=== PATIENT | female | born 1985 | race Caucasian/White ===

== ENCOUNTER 2016-04-27 09:33 | Day surgery (SDC) | payer OTHER ==
[~2016-04-27] VITALS: Ht 158.8 cm; Wt 88.4 kg
[~2016-04-27 09:33] MED LIST: MAKENA250 MG/11 IM; NAPROSYN500 MG PO; PRENATAL TABLE1 EAC3 PO
[2016-04-27 10:15] LABS: MCH 29.1 PG (29.0-34.0); MCHC 33.3 G/DL (30.0-36.0); MCV 87.2 FL (83-99); MEAN PLAT.VOLUME 10.9 uM^3 (9.5-12.4); PLATELET COUNT 368 K/uL (156-360); RBC DIS.WIDTH-CV 13.4 % (11.8-14.6); RBC DIS.WIDTH-SD 41.6 % (39-53); RED BLOOD COUNT 4.47 M/uL (3.80-5.20)
[2016-04-27 10:30] LABS: CHLORIDE 108 mEq/L (99-109); POTASSIUM 4.5 mEq/L (3.7-5.4); SODIUM 139 mEq/L (136-147)
[2016-04-27 10:33] LABS: GLUCOSE 99 mg/dL (70-99)
[2016-04-27 10:34] LABS: ANION GAP 8 MEQ/L (2-14)
[2016-04-27 10:35] LABS: TOTAL BILIRUBIN 0.5 mg/dL (0.0-1.0)
[2016-04-27 10:36] LABS: ALKALINE PHOSPHATASE 140 IU/L (3-129)
[2016-04-27 10:37] LABS: GFR ESTIMATE (CALCULATED) > 59 mL/min/
[2016-04-27 10:38] LABS: DIRECT BILIRUBIN 0.2 mg/dL (0.0-0.3); UREA NITROGEN (BUN) 16 mg/dL (9-23)
[2016-04-27 10:40] LABS: LIPASE 12 U/L (1.0-51.0)
[2016-04-27 15:39] VITALS: BP 111/64
[2016-04-27] MEDS ORDERED: AUGMENTIN875 MG PO (22:20)
[2016-04-27] MEDS ORDERED: HYDROCODON-ACE1 EAC7 PO (22:20)
[2016-04-27] MEDS ORDERED: IBUPROFEN800 MG PO (22:20)
[2016-04-28 01:10] VITALS: BP 122/66
[2016-04-28 04:02] LABS: BASOPHIL COUNT 0.1 K/uL (0-0.1); EOSINOPHIL (%) 0.4 % (0-5); HEMATOCRIT 32.8 % (36.0-46.0); IMMATURE GRANULOCYTE (%) 0.4 % (0.0-0.7); IMMATURE GRANULOCYTE COUNT 0.4 K/uL; LYMPHOCYTE COUNT 1.8 K/uL (1.0-2.8); MCH 28.8 PG (29.0-34.0); MCHC 32.9 G/DL (30.0-36.0); MCV 87.5 FL (83-99); MEAN PLAT.VOLUME 10.6 uM^3 (9.5-12.4); MONOCYTE (%) 7.1 % (3-12); MONOCYTE COUNT 0.8 K/uL (0-0.8); NEUTROPHIL (%) 75.7 % (45-76); NEUTROPHIL COUNT 8.6 K/uL (1.8-6.4); PLATELET COUNT 340 K/uL (156-360); RBC DIS.WIDTH-CV 13.4 % (11.8-14.6); RBC DIS.WIDTH-SD 41.5 % (39-53); RED BLOOD COUNT 3.75 M/uL (3.80-5.20); WHITE BLOOD COUNT 11.3 K/uL (4.1-10.2)
[2016-04-28 05:19] VITALS: BP 105/58
[2016-04-28 07:23] VITALS: BP 105/65
== END 2016-04-28 10:10 | disposition home or self-care (01) ==
LOC: EME 09:33 → SDC 15:40 → 2SOUTH 22:54 → 2EAST 22:54
PROVIDERS: Emergency Medicine; Obstetrics & Gynecology
PROC: 10D17ZZ Extraction of Products of Conception, Retained, Via Natural or Artificial Opening (ICD-10-PCS; principal; 2016-04-27)
DX: O72.2 Delayed and secondary postpartum hemorrhage (principal); Z88.2 Allergy status to sulfonamides
CPT/HCPCS: 76856; 80048; 80076; 80170; 83690; 85025; 85027; 88305; 99281; 99285; G0378; J0295; J1580; J1885; J7050; J7120

== ENCOUNTER 2016-10-20 21:17 | Emergency (ER) | payer OTHER ==
[~2016-10-20] VITALS: Ht 157.5 cm; Wt 94.7 kg
[~2016-10-20 21:17] MED LIST changes: +AUGMENTIN875 MG PO; +HYDROCODON-ACE1 EAC7 PO; +IBUPROFEN800 MG PO
[2016-10-20] MEDS ORDERED: MOTRIN800 MG PO (22:59)
[2016-10-21 00:06] VITALS: BP 114/58
== END 2016-10-21 00:07 | disposition home or self-care (01) ==
LOC: EME 21:17
DX: S16.1XXA Strain of muscle, fascia and tendon at neck level, initial encounter (principal); S39.012A Strain of muscle, fascia and tendon of lower back, initial encounter; S29.012A Strain of muscle and tendon of back wall of thorax, initial encounter; R51 Headache; V49.40XA Driver injured in collision with unspecified motor vehicles in traffic accident, initial encounter
CPT/HCPCS: 72040; 72070; 72100; 84702; 99281; 99283